=== PATIENT | male | born 2000 | race African-American/Black ===

== ENCOUNTER 2024-01-10 00:19 | Emergency (ER) | payer SELFPAY ==
[2024-01-10 01:05] VITALS: BP 159/93; PULSE 58; RESP 14; O2SAT 98
[2024-01-10 01:13] VITALS: BP 171/93; PULSE 9; RESP 16; O2SAT 100
[2024-01-10 01:19] VITALS: RESP 16
[2024-01-10] MEDS: morphine 4 mg/mL SDV 1 mL IVP (01:19)
[2024-01-10] MEDS: ondansetron 2 mg/ML SDV 2 mL 4 MG IVP (01:19)
[2024-01-10] MEDS: ketorolac 30 mg/mL INJ IVP (01:19)
[2024-01-10] MEDS: sodium chloride 0.9% 1,000 ML 999 ML IV (01:20)
[2024-01-10 01:22] LABS: Basophils % 0.3 %; Eosinophils # 0.2 10^3/uL (0.0-0.8); Eosinophils % 1.8 %; Lymphocytes # 2.7 10^3/uL (0.8-4.8); Lymphocytes % 20.9 %; Mean Corpuscular HGB Conc 34.3 g/dL (30-55); Mean Corpuscular Hemoglobin 28.9 pg (27-33); Mean Corpuscular Volume 84.3 fl (82-101); Mean Platelet Volume 10.1 fL (7.4-10.4); Monocytes # 0.9 10^3/uL (0.2-0.9); Monocytes % 6.6 %; Neutrophils # 8.99 10^3/uL (1.8-7.7); Nucleated Red Blood Cells % 0 %; Platelet Count 221 10^3/cmm (157-399); Red Blood Count 5.22 10^6/uL (3.85-5.65); Red Cell Distribution Width 12.2 % (12.1-15.1); White Blood Count 12.84 10^3/uL (3.29-11.43)
[2024-01-10 01:25] LABS: Lactic Sepsis W/Reflex 1.4 mmol/L (0.5-2.2)
[2024-01-10 01:26] LABS: Alanine Aminotransferase 16 U/L (0-41); Albumin Level 4.3 g/dL (3.5-5.2); Alkaline Phosphatase 71 U/L (40-130); Anion Gap 15.7 (5-19); Aspartate Amino Transferase 16 U/L (0-40); Blood Urea Nitrogen 11 mg/dL (6-20); Calcium 8.9 mg/dL (8.5-10.5); Carbon Dioxide 27 mmol/L (22-29); Chloride 102 mmol/L (98-107); Globulin 2.9 g/dL (1.3-4.6); Glomerular Filtration Rate 100.4 mL/min (90-130); Glucose 103 mg/dL (65-115); Lipase 25 U/L (13-60); Osmolality Calculated 292 mOsm/kg (285-295); Potassium 3.7 mmol/L (3.5-5.1); Sodium 141 mmol/L (136-145); Total Bilirubin 0.3 mg/dL (0.15-1.2); Total Protein 7.2 g/dL (6.6-8.7)
--- NOTE | 2024-01-10 01:35 | ED_ITS ---
HPI - Abdominal Pain 2 General: Chief Complaint: Abdominal Pain Stated Complaint: ABD Pain\Vomiting Time Seen by Provider: 01/10/24 00:56 History of Present Illness: 23-year-old male with periumbilical abdo fili pain and vomiting for the last 2 days. He states night he was seen in the ER in [place]. He had similar symptoms at that point. He states that CAT scan was done but they did not tell me what the results were . He is continue to have pain, and vomiting. No fever. No history of belly surgery. No other medical problems. He is traveling from [place] to [place]. Related Data Previous Rx's Medication Instructions Recorded ondansetron 4 mg disintegrating 4 mg PO Q6H PRN nausea and 01/10/24 tablet vomiting #14 tabs Physical Exam 2 Const: GENERAL APPEARANCE: cooperative and ill appearing (Mildly); not frail appearing HENMT: COMMON NORMALS: normocephalic, atraumatic and Normal external nose present HEAD & SCALP: normocephalic and atraumatic FACE & SINUS: normal facial exam and face symmetric NOSE: Normal external nose present Eye: COMMON NORMALS: Equal, round and reactive pupils present and EOMs intact bilaterally PUPIL: Yes Equal, round and reactive pupils present Neck/C-Spine: GENERAL: Yes trachea midline Chest: CHEST: Yes Symmetrical chest wall rise Resp: COMMON NORMALS: normal respiratory effort, No retractions, No use of accessory muscles and clear to auscultation bilaterally AUSCULTATION: clear to auscultation bilaterally Cardio: COMMON NORMALS: regular rate and regular rhythm RATE: regular rate RHYTHM: regular rhythm GI: COMMON NORMALS: Normal to inspection, nondistended, normoactive bowel sounds present and Soft to palpation PALPATION: Yes Soft to palpation and Yes Tenderness to palpation present (GI) (Diffuse) Extremity: COMMON NORMALS: no pedal edema Neuro: ABHISHEK COMA SCALE: document GCS findings [place] coma scale eye opening: Spontaneous [place] coma scale verbal response: Orientated Abhishek coma scale motor response: Obey commands [place] coma scale total score: 15 S ENSORY EXAM: Yes extremities (intact) Psych: COMMON NORMALS: speech normal SPEECH: Yes normal speech Skin: COMMON NORMALS: no rashes or lesions noted GENERAL SKIN EXAM: no rashes or lesions noted Course 2 Vital Signs: Vital signs: Vital Signs Pulse Rate 88 01/10/24 03:24 Respiratory Rate 16 08/18/24 03:24 Blood Pressure 151/91 01/10/24 03:24 Pulse Oximetry 98 01/10/24 03:24 Oxygen Delivery Me thod Room Air 01/10/24 02:53 MDM - Abdominal Pain Medical Decision Making Vitals are stable. White blood cell count is 13. No significant left shift. CRP is only 3. Lipase is 25. Liver enzymes are normal. BMP is not remarkable. Urinalysis is negative. Urine drug screen is positive for marijuana. In the differential is hyperemesis from cannabinoid. Less likely appendicitis, diverticulitis, ureter stone, etc. With improvement in his symptoms, he will be allowed discharge. Lab Data 01/10/24 00:40 01/10/24 00:40 Labs/Radiology: Laboratory Results WBC 12.84 10^3/uL (3.29-11.43) H 01/10/24 00:40 RBC 5.22 10^6/uL (3.85-5.65) 01/10/24 00:40 Hgb 15.10 g/dL (11.27-16.99) 01/10/24 00:40 Hct 44.0 % (37-53) 01/10/24 00:40 MCV 84.3 fl (82-101) 01/10/24 00:40 MCH 28.9 pg (27-33) 01/10/24 00:40 MCHC 34.3 g/dL (30-55) 01/10/24 00:40 RDW 12.2 % (12.1-15.1) 01/10/24 00:40 Plt Count 221 10^3/cmm (157-399) 01/10/24 00:40 MPV 10.1 fL (7.4-10.4) 01/10/24 00:40 Neut % (Auto) 70.0 % 01/10/24 00:40 Lymph % (Auto) 20.9 % 01/10/24 00:40 [place] % (Auto) 6.6 % 01/10/24 00:40 Eos % (Auto) 1.8 % 01/10/24 00:40 Baso % (Auto) 0.3 % 01/10/24 00:40 Neut # (Auto) 8.99 10^3/uL (1.8-7.7) H 01/10/24 00:40 Lymph # (Auto) 2.7 10^3/uL (0.8-4.8) 01/10/24 00:40 [place] # (Auto) 0.9 10^3/uL (0.2-0.9) 01/10/24 00:40 Eos # (Auto) 0.2 10^3/uL (0.0-0.8) 01/10/24 00:40 Baso # (Auto) 0.0 10^3/uL (0.0-0.1) 01/10/24 00:40 Nucleated RBC % (auto) 0 % 01/10/24 00:40 Nucleated RBCs # 0.0 /100WBC 01/10/24 00:40 Sodium 141 mmol/L (136-145) 01/10/24 00:40 Potassium 3.7 mmol/L (3.5-5.1) 01/10/24 00:40 Chloride 102 mmol/L (98-107) 01/10/24 00:40 Carbon Dioxide 27 mmol/L (22-29) 01/10/24 00:40 Anion Gap 15.7 (5-19) 01/10/24 00:40 BUN 11 mg/dL (6-20) 01/10/24 00:40 Creatinine 1.1 mg/dL (0.7-1.2) 01/10/24 00:40 GFR Calculation 100.4 mL/min (90-130) 01/10/24 00:40 Glucose 103 mg/dL (65-115) 01/10/24 00:40 Calculated Osmolality 292 mOsm/kg (285-295) 01/10/24 00:40 Lactic Acid 1.4 mmol/L (0.5-2.2) 01/10/24 00:40 Calcium 8.9 mg/dL (8.5-10.5) 01/10/24 00:40 Total Bilirubin 0.3 mg/dL (0.15-1.2) 01/10/24 00:40 AST 16 U/L (0-40) 01/10/24 00:40 ALT 16 U/L (0-41) 01/10/24 00:40 Alkaline Phosphatase 71 U/L (40-130) 01/10/24 00:40 C-Reactive Protein 3.0 mg/L (0.0-4.9) 01/10/24 00:40 Total Protein 7.2 g/dL (6.6-8.7) 01/10/24 00:40 Albumin 4.3 g/dL (3.5-5.2) 01/10/24 00:40 Globulin 2.9 g/dL (1.3-4.6) 01/10/24 00:40 Lipase 25 U/L (13-60) 01/10/24 00:40 Urine Color Yellow (Yellow) 01/10/24 01:10 Urine Appearance Clear (CLEAR) 01/10/24 01:10 Urine pH 7.0 (5-7) 01/10/24 01:10 Ur Specific [place] 1.020 (1.005-1.030) 01/10/24 01:10 Urine Protein 1+ (Negative) A 01/10/24 01:10 Urine Glucose (UA) Negative (Normal) 01/10/24 01:10 Urine Ketones Negative (Negative) 01/10/24 01:10 Urine Blood Negative (Negative) 01/10/24 01:10 Urine Nitrate Negative (Negative) 01/10/24 01:10 Urine Bilirubin Negative (Negative) 01/10/24 01:10 Urine Urobilinogen 1.0 mg/dL (Negative) 01/10/24 01:10 Ur Leukocyte Esterase Negative (Negative) 01/10/24 01:10 Urine RBC 0-2 /hpf (0-2) 01/10/24 01:10 Urine WBC 0-5 /hpf (0-5) 01/10/24 01:10 Ur Squamous Epith Cells 0-5 /hpf (0-5) 01/10/24 01:10 Amorphous Sediment Not Reportable 01/10/24 01:10 Urine Bacteria None seen /hpf (NONE) 01/10/24 01:10 Hyaline Casts 0.40 /lpf 01/10/24 01:10 Urine Opiates Screen Positive ng/mL (Negative) H 01/10/24 01:10 Ur Barbiturates Screen Negative ng/mL (Negative) 01/10/24 01:10 Ur Phencyclidine Scrn Negative ng/mL (Negative) 01/10/24 01:10 Ur Amphetamines Screen Negative ng/mL (Negative) 01/10/24 01:10 U Benzodiazepines Scrn Negative ng/mL (Negative) 01/10/24 01:10 Urine Cocaine Screen Negative ng/mL (Negative) 01/10/24 01:10 U Marijuana (THC) Screen Positive ng/mL (Negative) H 01/10/24 01:10 No radiology studies performed this visit Discharge Plan Discharge Patient Disposition: Home Clinical Impression: Abdominal pain, Cyclic vomiting syndrome Condition: Stable Prescriptions: New ondansetron 4 mg tablet,disintegrating 4 mg PO Q6H PRN (Reason: nausea and vomiting) Qty: 14 0RF Discharge Orders: Discharge ED (Routine); Ordered 01/10/24 Ordered By: Isreal Short Patient Instructions: Abdominal Pain (ED), Cyclic Vomiting Syndrome (ED), Opioid Safety, Pain Management Activity Restrictions/Additional Instructions: Medication as directed. Take it scheduled whether you are feeling nauseated or not for the first 24 hours, then as needed following that. Follow a liquid diet for the first 24 hours, then you may add solid food as tolerated. Do not smoke marijuana, as it can worsen your symptoms. Return for fever, vomiting liquids despite treatment, worsening pain despite treatment, other concerning symptoms. See your doctor this week. Coding Level of Care Code ED Grid Trimmer for Pio Becker
[2024-01-10 02:53] VITALS: BP 151/91; PULSE 88; RESP 1; O2SAT 98
[2024-01-10 02:57] LABS: Charge for UA Resulting for Rev
[2024-01-10 03:01] LABS: Bilirubin Urine Negative (Negative); Blood Urine Negative (Negative); Glucose Urine UA Negative (Normal); Ketones Urine Negative (Negative); Leukocyte Esterase Urine Negative (Negative); Nitrate Urine Negative (Negative); Protein Urine 1+ (Negative); Urine Appearance Clear (CLEAR); Urine Color Yellow (Yellow)
[2024-01-10 03:05] LABS: Bacteria Urine None Seen /hpf; RBC Urine 0-2 /hpf (0-2); Squamous Epithelial Cell Urine 0-5 /hpf (0-5); WBC Urine 0-5 /hpf (0-5)
[2024-01-10 03:07] VITALS: RESP 16; O2SAT 98
[2024-01-10 03:08] LABS: Amphetamines Screen Urine Negative (Negative); Barbiturates Screen Urine Negative (Negative); Benzodiazepines Screen Urine Negative (Negative); Cocaine Screen Urine Negative (Negative); Opiate Screen Urine Positive (Negative); PCP Screen Urine Negative (Negative); THC Screen Urine Positive (Negative)
[2024-01-10 03:24] VITALS: BP 151/91; PULSE 88; RESP 16; O2SAT 98
== END 2024-01-10 03:24 | disposition home or self-care (01) ==
PROVIDERS: Emergency Provider Emergency Medicine
DX: R10.33 Periumbilical pain (principal); R11.15 Cyclical vomiting syndrome unrelated to migraine
CPT/HCPCS: 80053; 80306; 81003; 81015; 83605; 83690; 85025; 86140; 96374; 96375; 99284; J1885; J2270; J2405; J7030